=== PATIENT | female | born 1955 | race Caucasian/White ===

== ENCOUNTER 2020-09-02 04:26 | Day surgery (SDC) | payer OTHER ==
[2020-08-29 17:18] VITALS: BMI 32.0
[2020-09-02] MEDS ORDERED: LIDOCAINE HCL/PF 2% SDV 5ML VIAL ONE (07:25)
[2020-09-02] MEDS ORDERED: SUCCINYLCHOLINE CHLORIDE 200 MG/10 ML SYRINGE ONE (07:25)
[2020-09-02] MEDS ORDERED: GLYCOPYRROLATE 0.2 MG/1 ML VIAL ONE (07:25)
[2020-09-02] MEDS ORDERED: EPHEDRINE SULFATE/0.9% NACL/PF 50 MG/10 ML SYRINGE NR ONE (07:25)
[2020-09-02] MEDS ORDERED: ceFAZolin SODIUM 1 GM VIAL ONE (07:25)
[2020-09-02] MEDS ORDERED: DEXAMETHASONE SOD PHOSPHATE 4 MG/1 ML VIAL ONE (07:25)
[2020-09-02] MEDS ORDERED: ROCURONIUM BROMIDE 100 MG/10 ML VIAL ONE (07:25)
[2020-09-02] MEDS ORDERED: LIDOCAINE HCL 2% JELLY (5 ML/TUBE) ONE (07:25)
[2020-09-02] MEDS ORDERED: PROPOFOL 20 ML ONE ×3 (07:25→08:15)
[2020-09-02] MEDS ORDERED: MIDAZOLAM HCL 2 MG/2 ML SINGLE DOSE VIAL ONE (07:27)
[2020-09-02] MEDS ORDERED: oxyCODONE HCL 5 MG TABLET PO PRN ×2 (07:38→09:29)
[2020-09-02] MEDS ORDERED: ONDANSETRON 4 MG/2 ML VIAL IVPUSH PRN (07:38)
[2020-09-02] MEDS ORDERED: IBUPROFEN 800 MG/8 ML IJ IVPB PRN (07:38)
[2020-09-02] MEDS ORDERED: IBUPROFEN 600 MG TABLET (FP) PO PRN (07:38)
--- NOTE | 2020-09-02 07:38 | HP ---
History & Physical Update - History History: No Change - Physical Physical: No Change - Assessment Assessment: No Change - Plan Plan: No Change (Consent signed and witnessed)
--- NOTE | 2020-09-02 07:38 | OP ---
Operative Note - Note: Operative Date: 09/02/20 Pre-Operative Diagnosis: 65yo P0 With Postmenopausal bleeding, 10mm Endometrium Operation: Hysteroscopy, Polypectomy, D&C, ECC Findings: 1. Multifibroid uterus 2. Lower Uterine segment polyp Post-Operative Diagnosis: Same as Pre-op Surgeon: Steffany Madsen Anesthesiologist/AUDIT DIRECTOR: Vance Walls Anesthesia: MAC Specimens Removed: 1. Polyp + Endometrial curettings. 2. Endocervical curettings Estimated Blood Loss (mls): 5 Instrument used (Debridements only): Symphion Hysteroscope Drains & Tubes with Location: Fluid Deficit 0cc Drains, Volume Out (mls): 20 Fluid Volume Replaced (mls): 300 Operative Report Dictated: Yes
[2020-09-02] MEDS ORDERED: ELECTROLYTE-148 SOLN 1,000 ML IV SCH (07:45)
[2020-09-02] MEDS ORDERED: KETOROLAC TROMETHAMINE 30 MG/1 ML VIAL ONE (08:36)
--- NOTE | 2020-09-02 09:04 | SPEC ---
DATE OF OPERATION: 09/02/2020 PREOPERATIVE DIAGNOSIS: A 65-year-old para 0 with postmenopausal bleeding, 10-mm endometrium. OPERATION: Hysteroscopy, polypectomy, dilatation and curettage, endocervical curettage. FINDINGS: Multifibroid uterus. Lower uterine segment polyp. POSTOPERATIVE DIAGNOSIS: A 65-year-old para 0 with postmenopausal bleeding, 10-mm endometrium. SURGEON: Steffany Madsen MD ANESTHESIOLOGIST: Vance Walls MD ANESTHESIA: MAC. SPECIMENS REMOVED: Polyp, endometrial curettings and endocervical curettings. DESCRIPTION OF PROCEDURE: After ensuring informed consent, the patient was brought to the operating room and placed in the dorsal lithotomy position. The vagina and perineum were prepped and draped in sterile fashion. After a time-out was completed, the Symphion hysteroscope was white balanced and primed and ready to be used. Adams retractors were placed into the vagina. The anterior cervical lip was articulated with a single-tooth tenaculum. The cervical os was dilated with gradually increasing in size Monsivais dilators. The 6.3-mm Symphion hysteroscope was introduced into the cervix without any difficulty. Essentially atrophic cavity was visualized, with a small lower uterine segment polyp. The resectoscope instrument was introduced through the surgical port, and polyp and endometrial curettings were collected. Subsequently, the hysteroscope was removed from the uterus. Excellent hemostasis was noted. A 0-gauge sharp curette was used to obtain endocervical curettings. All instruments were removed from the vagina and cervix. Excellent hemostasis was noted. Sponge and instrument count were correct x2. Estimated blood loss was 5 mL. The patient drained of 20 mL of urine and received 300 mL of IV fluids. Fluid deficit was noted to be 0, negligible. The patient was extubated and brought into the recovery room in stable condition. Gabby [id number]
[2020-09-02] MEDS ORDERED: LACTATED RINGERS SOLUTION 1,000 ML IV SCH (09:30)
[2020-09-02 09:45] VITALS: TEMP 97
[2020-09-02 11:00] VITALS: BP 140/70; PULSE 60
--- NOTE | 2020-09-03 11:03 | PATH ---
Surgical Pathology Report Patient Name: ANA [facility]. Rec. #: [id number] /Age/Gender: 1955 (Age: 65) / F Account: [id number] Location: [facility] Taken: 09/02/2020 Received: 09/02/2020 Reported: 09/03/2020 Physicians: Steffany Madsen M.D. Specimen(s) Received A: ENDOMETRIAL CURETTINGS AND POLYPS B: ENDOCERVICAL CURETTINGS Clinical History Menopausal bleeding Final Diagnosis A. ENDOMETRIAL CURETTINGS AND POLYPS, EXCISION: FRAGMENTS OF ENDOMETRIAL POLYP. SEPARATE FRAGMENTS OF INACTIVE/WEAKLY PROLIFERATIVE ENDOMETRIUM. PORTIONS OF SMOOTH MUSCLE BUNDLES PRESENT, SUGGEST CLINICAL CORRELATION. B. ENDOCERVICAL CURETTINGS: ENDOCERVICAL TISSUE AND SQUAMOUS MUCOSA. NEGATIVE FOR DYSPLASIA. Electronically Signed Renea Carroll M.D. Gross Description A. Received in formalin labeled "endometrial curettings and polyps," is a 3.4 x 2.5 x 0.3 cm aggregate of [place]on soft tissue fragments admixed with mucus. The formalin is filtered and the specimen is entirely submitted in 2 cassettes. B. Received in formalin labeled "endocervical curettings," is a 0.3 x 0.3 x 0.1 cm aggregate of norton soft tissue fragments admixed with blood-tinged mucous. The formalin is filtered and the specimen is entirely submitted in one cassette. /09/02/2020 saudi09/02/2020
== END 2020-09-02 10:25 | disposition home or self-care (01) ==
LOC: JASU-SURG 04:26
PROVIDERS: ATTEND Obstetrics & Gynecology
PROC: 0UDB7ZX Extraction of Endometrium, Via Natural or Artificial Opening, Diagnostic (ICD-10-PCS; 2020-09-02)
PROC: 0UJD8ZZ Inspection of Uterus and Cervix, Via Natural or Artificial Opening Endoscopic (ICD-10-PCS; 2020-09-02)
PROC: 0UBC7ZX Excision of Cervix, Via Natural or Artificial Opening, Diagnostic (ICD-10-PCS; principal; 2020-09-02 07:30)
PROC: 0UB97ZX Excision of Uterus, Via Natural or Artificial Opening, Diagnostic (ICD-10-PCS; 2020-09-02 07:30)
DX: N95.0 Postmenopausal bleeding (principal); N84.0 Polyp of corpus uteri; D25.9 Leiomyoma of uterus, unspecified
CPT/HCPCS: 71046-TC-FY; 88305-TC; 94760